=== PATIENT | female | born 1980 | race Caucasian/White ===

== ENCOUNTER → 2017-12-01 | Outpatient (CLI) | payer OTHER, BC ==
--- NOTE | 2017-12-01 16:38 | RADIOLOGY IMAGING REPORT ---
FACILITY: [facility] - [place] PATIENT NAME: Moriah Richardson : 1980 MR: [id number] V: [id number] EXAM DATE: ORDERING PHYSICIAN: PRAVEEN MONROY TECHNOLOGIST: [place] [facility] [place]iah [place] : 1980 Visit/Account:[id number] Date of Sevice: 12/01/2017 PELVIC HISTORY: Right ovarian enlargement TECHNIQUE: Transabdominal and transvaginal ultrasound pelvis. COMPARISON: August 04, 2017 FINDINGS: Uterus: ; 9.5 cm length x 3.3 cm AP x 5.4 cm transverse. Myometrium: There appears to be a scar along the anterior lower uterus. Endometrium: Appears thin. An IUD is noted within the endometrial canal; double thickness 2.6 mm. Cervix: Grossly negative. Ovaries: Right - 3.4 x 2.1 x 2.2 cm Left - 3.8 x 2.9 x 2.4 cm Blood flow is documented in each ovary by duplex Doppler ultrasound. Adnexa: Grossly unremarkable. Free pelvic fluid: Trace. IMPRESSION: IUD appears to be within the endometrial canal There appears to be a scar along the anterior lower uterus Report Dictated By: Deb López MD at 12/01/2017 4:31 PM Report E-Signed By: Deb López MD at 12/01/2017 4:34 PM WSN:[id number]
--- NOTE | 2017-12-01 16:50 | RADIOLOGY IMAGING REPORT ---
FACILITY: [facility] - [place] PATIENT NAME: Moriah Richardson : 1980 MR: [id number] V: [id number] EXAM DATE: ORDERING PHYSICIAN: PRAVEEN MONROY TECHNOLOGIST: Location: [facility] - [place] Patient: Moriah Richardson : 1980 Visit/Account:[id number] Date of Sevice: 12/01/2017 THYROID HISTORY: Multiple thyroid nodules COMPARISON: August 04, 2017 FINDINGS: SIZE: Right lobe: 3.5 x 0.89 x 0.87 cm Left lobe: 5.9 x 1.9 x 2 cm Isthmus: 2.8 mm PARENCHYMA: Heterogeneous NODULES: Right lobe: * None discrete. Left lobe: * There is an isoechoic nodule in the superior pole measuring 9 mm in diameter that appears unchange d.. There is a complex hypervascular partially cystic nodule in the mid left lobe measuring 2.3 cm i n diameter that appears unchanged in size when measured in the same tissue planes. Also in the mid l eft lobe is a mildly complex hypervascular nodule measuring 1.3 cm in diameter that appears that also appears unchanged in size. There are additional subcentimeter nodules in the inferior pole Isthmus: * None discrete. VASCULARITY: Within normal limits. ADDITIONAL FINDINGS: None. IMPRESSION: The two dominant nodules in the mid left lobe the thyroid gland appear relatively unchanged when comp ared the prior study REFERENCE: 2015 [place] [employer] Management Guidelines for Adult Patients with Thyroid Nodules and D ifferentiated Thyroid Cancer: The [place] [employer] Guidelines Task Force on Thyroid Nodul es and Differentiated Thyroid Cancer. SONOGRAPHIC PATTERNS: * Benign: Purely cystic nodules (no solid component); estimated risk of malignancy <1 percent; no bi opsy recommended. * Very Low Suspicion: Spongiform or partially cystic nodules without any of the sonographic features described in low, intermediate, or high suspicion patterns; estimated risk of malignancy <3 percent; consider FNA at > 2 cm (Observation without FNA is also a reasonable option). * Low Suspicion: Isoechoic or hyperechoic solid nodule, or partially cystic nodule with eccentric so lid areas, without microcalcification, irregular margin or ETE (extra-thyroidal extension), or taller than wide shape; estimated risk of malignancy 5-10 percent; recommend FNA at >1.5 cm. * Intermediate Suspicion: Hypoechoic solid nodule with smooth margins without microcalcifications, E TE (extra-thyroidal extension), or taller than wide shape; estimated risk of malignancy 10-20 percent ; recommend FNA at > 1 cm. * High Suspicion: Solid hypoechoic nodule or solid hypoechoic component of a partially cystic nodule with one or more of the following features: irregular margins (infiltrative, microlobulated), microc alcifications, taller than wide shape, rim calcifications with small extrusive soft tissue component, evidence of ETE (extra-thyroidal extension); estimated risk of malignancy >70-90 percent; recommend FNA at > 1 cm. NOTES: * Although a sonographically suspicious subcentimeter thyroid nodule without evidence of extrathyroi mason extension or sonographically suspicious lymph nodes may be observed with close sonographic follow -up rather than pursuing immediate FNA, patient age and preference may modify decision-making. A > 50% interval increase in nodule volume and/or development of new suspicious sonographic features are felt to be a valid reasons for potential re-aspiration of a nodule previously shown to have benig n FNA cytology. Report Dictated By: Deb López MD at 12/01/2017 4:35 PM Report E-Signed By: Deb López MD at 12/01/2017 4:45 PM GOERGIAN:MARCELL
== END ==
LOC: US 09:23
PROVIDERS: ATTEND Family Medicine
DX: E04.9 Nontoxic goiter, unspecified (principal); Z97.5 Presence of (intrauterine) contraceptive device; Z98.891 History of uterine scar from previous surgery
CPT/HCPCS: 76536; 76856

== ENCOUNTER → 2018-05-27 | Outpatient (CLI) | payer OTHER, BC ==
[~2018-05-27] MED LIST: BUPR-126 PO; ESCI20TA38 PO; LEVO50TA86 PO; LISD40PT PO
== END ==
LOC: RESP 00:33
PROVIDERS: ATTEND Otolaryngology
DX: G47.33 Obstructive sleep apnea (adult) (pediatric) (principal)

== ENCOUNTER → 2018-10-25 | Outpatient (REF) ==
[2018-10-25 07:56] LABS: LDL CHOLESTEROL 101 mg/dl
== END ==
DX: Z02.9 Encounter for administrative examinations, unspecified (principal)

== ENCOUNTER 2018-12-07 18:30 | Emergency (ER) | payer BC, OTHER ==
[2018-12-07 19:06] VITALS: BP 121/57
--- NOTE | 2018-12-07 19:26 | ER Report ---
History and Physical Time Seen By MD: 19:08 Hx. of Stated Complaint: PATIENT STATES SHE WAS CUTTING FROZEN BURGERS WHEN SHE CUT HER LEFT THUMB ABOUT 45 MINUTES PRIOR HPI/ROS CHIEF COMPLAINT: thumb laceration HISTORY OF PRESENT ILLNESS: This is a 38 year old female. She cut her thumb with a knife while trying to cut frozen burgers. About 45 minutes prior. Some tingling in thumb. Unknown last tetanus shot. Normal motor function. Allergies: Coded Allergies: No Known Drug Allergies (Unverified , 12/07/18) Home Meds Active Scripts Cephalexin Monohydrate (CEPHALEXIN) 500 Mg Cap, 500 MG PO Q6H, #20 CAP 0 Refills Prov:OCTAVIO ROGERS MD 12/07/18 Reported Medications Escitalopram Oxalate (LEXAPRO) 20 Mg Tablet, 1 TAB PO QDAY, TAB 05/13/18 Levothyroxine Sodium (LEVOTHYROXINE SODIUM) 50 Mcg Tablet, 1 TAB PO QDAY, TAB 05/13/18 Discontinued Reported Medications Lisdexamfetamine Dimesylate (VYVANSE) 40 Mg Capsule, 1 CAP PO QDAY, CAPSULE 05/13/18 Bupropion Hcl (WELLBUTRIN SR) 150 Mg Tablet.er, 1 TAB PO QDAY, TAB 05/13/18 Reviewed Nurses Notes: Yes Smoking Status: Never Smoker Constitutional Vital Sign - Last 24 Hours 12/07/18 19:06 Temp 99.2 Pulse 80 Resp 15 B/P (MAP) 121/57 Pulse Ox 92 O2 Delivery Room Air Physical Exam General: Alert, no distress Skin: 2cm laceration flexor surface of left thumb, over interphalangeal joint. Neuro: Some paresthesias in the thumb. Normal motor Musculoskeletal: Has normal strength with resisted extension and flexion. Cardio: Normal cap refill. Medical Decision Making ED Course/Re-evaluation ED Course Procedure: Laceration Repair Verbal consent from patient after discussing repair options, risks and benefits. Wound cleaned extensively with Shur-Clens and saline. Anesthesia: 1% lidocaine without epinephrine and 0.5% bupivacaine without epinephrine as digital block. Location: Left thumb, flexor surface over the interphalangeal joint. Length: About 2 cm. There were no deep structures involved. No tendon injury was identified. Wound repair: 5 interrupted 4-0 Prolene sutures. The wound repair was simple and performed by myself. Wound care instructions discussed. Sutures need to be removed in 7 days. Tetanus booster given. Cephalexin 500mg four times a day for 5 days. Decision to Disposition Date: Dec 07, 2018 Decision to Disposition Time: 20:15 Depart Departure Latest Vital Signs Vital Signs Date Time Temp Pulse Resp B/P (MAP) Pulse Ox O2 Delivery O2 Flow Rate FiO2 12/07/18 19:06 99.2 80 15 121/57 92 Room Air Impression: Primary Impression: Laceration of left thumb Condition: Improved Disposition: HOME OR SELF-CARE Referrals: PRAVEEN MONROY DO (PCP) New Scripts Cephalexin Monohydrate (CEPHALEXIN) 500 Mg Cap 500 MG PO Q6H, #20 CAP 0 Refills Prov: OCTAVIO ROGERS MD 12/07/18 Patient Instructions: Finger Laceration (ED) Additional Instructions: Wound Care: Wash the wound once a day with soap and water. Dry the wound and apply a small amount of antibiotic ointment with a clean dressing. If the dressing becomes wet or dirty, repeat cleaning and dressing as above. No soaking the wound; no swimming. Stitches need to be removed in 7 days. Pain Control: Use Tylenol or ibuprofen for pain. Using and ice pack can help reduce swelling. Antibiotic: Cephalexin 500mg 4 times a day for 5 days. Problem Qualifiers Primary Impression: Laceration of left thumb Encounter type: initial encounter Damage to nail status: without damage Foreign body presence: without foreign body Qualified Codes: S61.012A - Laceration without foreign body of left thumb without damage to nail, initial encounter OCTAVIO ROGERS MD Dec 07, 2018 19:26
[2018-12-07] MEDS ORDERED: CEPHALEXIN 500 MG CAP TH 2 CAP/BOTTLE PO ONE (20:15)
[2018-12-07] MEDS ORDERED: DIPHTH/TETANUS/ACEL. PERTUSSIS IM ONLY ONE (20:15)
[2018-12-07] MEDS ORDERED: CEPH500C24 PO (20:16)
== END 2018-12-07 20:26 | disposition home or self-care (01) ==
LOC: ER 19:15
DX: S61.012A Laceration without foreign body of left thumb without damage to nail, initial encounter (principal); W45.8XXA Other foreign body or object entering through skin, initial encounter
CPT/HCPCS: 90471; 90715; 99283